=== PATIENT | male | born 1980 | race Caucasian/White ===

== ENCOUNTER 2022-12-24 07:01 | Emergency (ER) | payer OTHER, SELFPAY ==
--- NOTE | 2022-12-24 | ECG_ITS ---
Test Reason : cp Blood Pressure : / mmHG Vent. Rate : 059 BPM Atrial Rate : 059 BPM P-R Int : 152 ms QRS Dur : 106 ms QT Int : 456 ms P-R-T Axes : 049 -06 022 degrees QTc Int : 451 ms Sinus bradycardia Otherwise normal ECG When compared with ECG of 02-JUL-2009 16:13, Heart rate has decreased Referred By: Generic ED Physician Electronically Signed By:NHI EDWARDS
[2022-12-24 07:32] VITALS: BP 112/80; PULSE 58; RESP 16; TEMP 36.8; O2SAT 99; BMI 27.4
[2022-12-24 08:04] LABS: MANUAL DIFF FLAG NO
[2022-12-24 08:09] LABS: Basophils Percent Auto 0.3 % (0-2); Eosinophils Percent Auto 0.1 % (0-4); Hemoglobin 13.4 g/dl (14.0-18.0); Imm Gran Abs Auto 0.02 X10*3/uL (0.00-0.03); Imm Gran Pct Auto 0.3 % (0.0-0.4); Lymphocytes Absolute Auto 1.3 X10*3/uL (1.2-4.9); Lymphocytes Percent Auto 16.9 % (20-40); Mean Corpuscular HGB Conc 35.3 g/dl (31.0-36.0); Mean Corpuscular Hemoglobin 33.1 pg (27.0-33.0); Mean Corpuscular Volume 93.8 fL (80.0-98.0); Mean Platelet Volume 9.7 fL (9.4-12.4); Monocytes Absolute Auto 0.6 X10*3/uL (0.1-1.2); Neutrophils Absolute Auto 5.5 x10*3/uL (2.0-8.3); Neutrophils Percent Auto 74.4 % (45-73); Platelet Count 238 X10*3/uL (160-400); Red Blood Count 4.05 X10*6/uL (4.60-5.80); Red Cell Distribution Width 12.5 % (11.0-16.0); White Blood Count 7.4 X10*3/uL (4.8-10.8)
[2022-12-24 08:29] LABS: Anion Gap 12 (12-20); Blood Urea Nitrogen 12 mg/dL (9-16); Calcium 9.5 mg/dL (8.4-10.2); Carbon Dioxide 25 mmol/L (22-29); Chloride 105 mmol/L (96-108); Estimated Glomerular Filt Rate > 60; Glucose Random 103 mg/dL (60-115); Sodium 138 mmol/L (135-145)
[2022-12-24 08:38] LABS: Troponin-I High Sensitivity < 2.7 ng/L (<3.5-35.0)
[2022-12-24 08:47] VITALS: BP 114/79; PULSE 55; RESP 14; O2SAT 97
--- NOTE | 2022-12-24 09:06 | PC.NURSE ---
labs drawn, awaiting provider at this time, pt resting, respirations even and unlabored
--- NOTE | 2022-12-24 09:12 | ED_ITS ---
HPI - General Adult General Chief complaint: General Medical Stated complaint: High BP Time Seen by Provider: 12/24/22 09:12 Source: patient and other (Significant other, Akanksha) Mode of arrival: ambulatory Limitations: no limitations History of Present Illness HPI narrative: 42-year-old man who presents emergency department for evaluation of chest pain, headache, nausea, vomiting, myalgias and arthralgias. Patient states that he has been sick for approximately 1 week. He states he has a constant tightness in his chest. He points to his sternum and anterior chest when asked to localize the pain. States the pain is worse with movement but not with breathing. He states he does feel short of breath but denies dyspnea on exertion. He denied fever, chills, rhinorrhea, sore throat or cough. He states that he does have an intermittent, headache which is located at the top of his head and is a pressure-like sensation. He has had nausea with no vomiting. He denied photophobia or phonophobia. States that he is feeling fatigued in his muscles and joints ache. The patient's significant other took the patient's blood pressure at home and it was 125/105 which concerned her therefore she brought him to the emergency department for evaluation. The patient does not have a history of hypertension. Related Data Previous Rx's Medication Instructions Recorded acetaminophen 500 mg tablet 1,000 mg PO Q6H PRN fever or pain 12/24/22 (Tylenol Extra Strength) #20 tabs ibuprofen 400 mg tablet 400 mg PO TID PRN fever or pain 12/24/22 #30 tabs ondansetron 4 mg disintegrating 4 mg PO Q6-8H PRN nausea and 12/24/22 tablet vomiting #14 tabs Allergies Allergy/AdvReac Type Severity Reaction Status Date / Time No Known Allergies Allergy Mild NOT Unverified 01/17/20 16:45 [No Known Allergies*] APPLICABLE Review of Systems Review of Systems: Yes all other systems are reviewed and are negative [facility] Past Medical History [facility] Narrative: Past medical history: None. Social history: Denies tobacco use, occasionally drinks alcohol, he denies drug use. Social History Social History Alcohol intake: current Alcohol intake frequency: holidays/special occasions only Smoked in Last 30 Days: No Use of substances other than those prescribed or required for medical reasons: No Advance Directives: No Advance Directives Information Provided: Yes Physical Exam ED Vital Signs: Vital Signs - 24 hr 12/24/22 07:32 12/24/22 08:47 12/24/22 10:00 Temperature 98.3 F Pulse Rate 58 55 56 Respiratory Rate 16 14 10 L Blood Pressure 112/80 114/79 116/81 Pulse Oximetry 99 97 97 Oxygen Delivery Method Room Air Room Air Room Air BMI result Body Mass Index 27.4 Vital signs were normal. Exam: General: Awake, alert in no distress Head: Normocephalic, atraumatic EENT: PERRL, Lids normal, sclera normal, conjunctiva normal, nose normal , ears normal, throat without erythema or exudates Neck: Supple, no adenopathy, trachea midline and nontender Lung: breath sounds symmetric, no wheezing, rales or rhonchi Chest: symmetric movement, patient has tenderness palpation of his sternum as costochondral joints Heart: regular rate and rhythm, normal S1, S2 no murmurs or rubs Abdomen: soft, non-tender, nondistended, normal bowel sounds Back: no vertebral tenderness, no CVAT Extremities: no deformities, moves all extremities symmetrically Skin: no rashes, no lesion, normal color and warmth Neuro: Awake, alert, oriented, normal speech, cranial nerves intact, moves all extremities symmetrically Psych: Pleasant, cooperative Medical Decision Making Medical Decision Making MDM Narrative: 42-year-old male with no significant past medical history presents emergency department for evaluation of 1 week of chest pain, shortness of breath, he adache, myalgias, arthralgias and fatigue. Patient's vital signs were normal. Patient's physical examination did reveal tenderness palpation of his sternum and costochondral joints otherwise was unremarkable. I ordered the following evaluation on the patient: CBC, BMP, troponin, EKG. 12:05: Patient's laboratory evaluation was unremarkable. Twelve EKG was normal. Patient's exam did reveal tenderness palpation over his sternum and costochondral joints. Patient's presentation is consistent with acute viral syndrome I did discuss this with the patient and the patient's significant other Patient was treated with ibuprofen 400 mg orally and Tylenol 975 mg orally. He was given prescriptions for these 2 medications and also Zofran ODT 4 mg every 6 to 8 hours as needed for nausea and vomiting He was given a work note, was given printed and verbal instructions and discharged home Differential Diagnosis Differential Diagnoses: The differential diagnosis associated with the presentation includes Differential diagnosis includes was not limited to viral syndrome, costochondritis, myocardial infarction, myocardial ischemia, pneumonia Admission/Observation Consideration of admission/observation: Escalation of care including admission/observation considered Lab Data MDM Lab Attestation statement: I reviewed the patient's lab results. My independent interpretation patient's laboratory evaluation is as follows: CBC was normal. BMP was normal. Troponin was below detectable limits. 12/24/22 08:00 12/24/22 08:00 Labs: Lab Results 12/24/22 12/24/22 12/24/22 Range/Units 08:00 08:00 08:00 WBC 7.4 (4.8-10.8) X10*3/uL RBC 4.05 L (4.60-5.80) X10*6/uL Hgb 13.4 L (14.0-18.0) g/dl Hct 38.0 L (42.0-52.0) % MCV 93.8 (80.0-98.0) fL MCH 33.1 H (27.0-33.0) pg MCHC 35.3 (31.0-36.0) g/dl RDW 12.5 (11.0-16.0) % Plt Count 238 (160-400) X10*3/uL MPV 9.7 (9.4-12.4) fL Immature Gran % (Auto) 0.3 (0.0-0.4) % Neut % (Auto) 74.4 H (45-73) % Lymph % (Auto) 16.9 L (20-40) % [place] % (Auto) 8.0 (2-11) % Eos % (Auto) 0.1 (0-4) % Baso % (Auto) 0.3 (0-2) % Lymph # (Auto) 1.3 (1.2-4.9) X10*3/uL [place] # (Auto) 0.6 (0.1-1.2) X10*3/uL Eos # (Auto) 0.0 (0.0-0.4) X10*3/uL Baso # (Auto) 0.0 (0.0-0.2) X10*3/uL Abs Immat Gran (auto) 0.02 (0.00-0.03) X10*3/uL Absolute Neuts (auto) 5.5 (2.0-8.3) x10*3/uL Absolute Nucleated RBC 0.000 (0.0-0.012) X10*3/uL Nucleated RBC % (auto) 0.0 (0.0-0.2) /100WBC Sodium 138 (135-145) mmol/L Potassium 4.0 (3.3-5.1) mmol/L Chloride 105 (96-108) mmol/L Carbon Dioxide 25 (22-29) mmol/L Anion Gap 12 (12-20) BUN 12 (9-16) mg/dL Creatinine 0.82 (0.5-1.4) mg/dL Estim Creat Clear Calc 117.0 Estimated GFR > 60 Random Glucose 103 (60-115) mg/dL Calcium 9.5 (8.4-10.2) mg/dL Troponin I High Sens < 2.7 (<3.5-35.0) ng/L Independent Interpretation I performed an independent interpretation of an: EKG Interpretation: My independent interpretation patient's 12 EKG done at 07:39 hours is as follows: Sinus bradycardia with a rate of 59, normal IN interval, QRS duration QTC interval, no ST segment elevation, no ST segment depression, no T-wave abnormalities, compared to EKG dated 07/02/2009-there are no changes. Except for the bradycardia this is a normal EKG. Discharge Plan Discharge Clinical Impression: Viral syndrome Chest pain Qualifiers: Chest pain type: unspecified Qualified Code(s): R07.9 - Chest pain, unspecified Headache Qualifiers: Headache chronicity pattern: acute headache Patient Disposition: Home, Self-Care Instructions: Costochondritis (ED), Viral Syndrome (ED) Additional Instructions: Your EKG was normal. Your blood work was normal. Your blood pressures here in the emergency department were normal. Your symptoms are consistent with a viral infection causing inflammation of the joints and muscles of your chest. This type of chest pain is called costochondritis. Take ibuprofen 400 mg pills, 1 pills every 6 hours (3 times a day) for 5 days then every 6 hours as needed for pain or fever. Take Tylenol (acetaminophen) 500 mg pills, 2 pills every 6 hours as needed for pain or fever. Take Zofran ODT 4 mg pills, 1 pill dissolved in your mouth every 8 hours as needed for nausea and vomiting. Follow-up with your doctor in 2 days. Please return to the emergency department if your symptoms get worse or if you develop any symptoms that are concerning to you. Please see work note Prescriptions: New acetaminophen [Tylenol Extra Strength] 500 mg tablet 1,000 mg PO Q6H PRN (Reason: fever or pain) Qty: 20 0RF ibuprofen 400 mg tablet 400 mg PO TID PRN (Reason: fever or pain) Qty: 30 0RF ondansetron 4 mg tablet,disintegrating 4 mg PO Q6-8H PRN (Reason: nausea and vomiting) Qty: 14 0RF Stand Alone Forms: Work/School Release
[2022-12-24 10:00] VITALS: BP 116/81; PULSE 56; RESP 10; O2SAT 97
[2022-12-24 11:58] VITALS: BP 127/77; PULSE 64; RESP 16; O2SAT 98
[2022-12-24] MEDS: Acetaminophen 325 MG TABLET 975 MG PO (12:08)
[2022-12-24] MEDS: Ibuprofen 400 MG TABLET PO (12:09)
== END 2022-12-24 12:15 | disposition home or self-care (01) ==
PROVIDERS: Emergency Provider Emergency Medicine Emergency Medical Services
DX: B34.9 Viral infection, unspecified (principal); R07.89 Other chest pain; R51.9 Headache, unspecified; Z79.899 Other long term (current) drug therapy
CPT/HCPCS: 36415; 80048; 84484; 85025; 93005; 99283; 99285

== ENCOUNTER 2024-12-26 06:54 | Emergency (ER) | payer SELFPAY ==
--- NOTE | ~2024-12-26 | XR_ITS ---
EXAMINATION: XR CHEST 2 VIEWS HISTORY: cough COMPARISON: There are no prior studies available for comparison. FINDINGS: PA and lateral views of the chest are submitted. The lungs are expanded and clear. There is no pleural effusion, pneumothorax, or pulmonary vascular congestion. The heart is normal in size. The bones are intact. XR/XR chest 2V IMPRESSION: Normal examination of the chest. Electronically signed by: Bogdan Vásquez MD 12/26/2024 08:55 AM EDT
[2024-12-26 07:01] VITALS: BP 118/60; PULSE 62; RESP 18; TEMP 36.7; O2SAT 97; BMI 28.0
--- OUTSIDE RECORDS SUMMARY | 2024-12-26 07:49 | XMS_ITS | Clinical Summary ---
Author Organization [facility] it Address [address] [place] [address] Care Team Providers Care School Principal Name Role Phone Unavailable Primary Care Provider Unavailabl e Social History Tobacco Use Types Packs/Day Years Used Date Smoking Tobacco: Never Assessed Sex and Gender Information Value Date Recorded Sex Assigned at Not on file Legal Sex Male 5:04 AM EST Gender Identity Not on file Sexual Orientation Not on file Plan of Treatment Health Maintenance Due Date Last Done Comments DTaP,Tdap,and Td Vaccines (1 - Tdap) 2001 Hepatitis B Vaccines (1 of 3 - 19+ 3-dose series) 2001 Cholesterol Screening (Lipid Panel) 04/04/2022 HIV Screening 04/04/2022 Hepatitis C Screening 04/04/2022 Social Influencers of Health Screening 04/04/2022 COVID-19 Vaccine (2023-2 5 season) 2024 Depression Screening 05/02/2024 Influenza Vaccine (#1) 2024 HIB Vaccines Aged Out No longer eligi ble based on patient's age to complete this topic HPV Vaccines Aged Out No longer eligi ble based on patient's age to complete this topic Hepatitis A Vaccines Aged Out No long er eligible based on patient's age to complete this topic IPV Vaccines Aged Out No longer eligi ble based on patient's age to complete this topic MMR Vaccines Aged Out No longer eligi ble based on patient's age to complete this topic Meningococcal ACWY Vaccine Aged Out N o longer eligible based on patient's age to complete this topic Meningococcal B Vaccine Aged Out No l onger eligible based on patient's age to complete this topic Pneumococcal Vaccine: Pediat rics (0 to 5 Years) and At-Risk Patients (6 to 49 Years) Aged Out No longer eligible b ased on patient's age to complete this topic RSV Immunization Patients Un juan 20 months Aged Out No longer eligible b ased on patient's age to complete this topic Varicella Vaccines Aged Out No longer eligible based on patient's age to complete this topic
--- OUTSIDE RECORDS SUMMARY | 2024-12-26 07:49 | XMS_ITS | Encounter Summary ---
Author Organization [employer] Address [address] [place] [address] Care Team Providers Care Environmental Health Aide Name Role Phone Unavailable Primary Care Provider Unavailabl e Reason for Visit * Reason Onset Date Comments Letter for School/Work 12/17/2022 Encounter Details Date Type Department Care Team ([facility] st Contact Info) Description 12/17/2022 Telephone [facility] [address] [place], [place] [id number] Sam Lares DDS [address] [place], [place] [phone] Letter for School/Work Social History Tobacco Use Types Packs/Day Years Used Date Smoking Tobacco: Never Smokeless Tobacco: Never Alcohol Use Standard Drinks/Week Comments Defer 0 (1 standard drink = 0.6 oz pur e alcohol) Sex and Gender Information Value Date Recorded Sex Assigned at Male 03/01/2022 10:15 AM EDT Legal Sex Male 10:15 AM EDT Gender Identity Choose not to disclose 10:15 AM EDT Sexual Orientation Choose not to disclose 2021 10:15 AM EDT documented as of this encounter Miscellaneous Notes * Telephone Encounter - Noemí Castro - 12/17/2022 11:09 AM EDT Patient called in again inquiring about note. * Telephone Encounter - Noemí Castro - 12/17/2022 8:53 AM EDT Patient came in yesterday and has extraction done. When they came out of visit they state there wasno one in front and they need a note. He did not go to work today and is requesting the note to cover today's absence as well as yesterdays visit DR documented in this encounter Plan of Treatment Not on file documented as of this encounter Visit Diagnoses Not on filedocumented in this encounter
--- OUTSIDE RECORDS SUMMARY | 2024-12-26 07:49 | XMS_ITS | Clinical Summary ---
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 Social History Tobacco Use Types Packs/Day Years Used Date Smoking Tobacco: Never Smokeless Tobacco: Never Tobacco Cessation:Counseling Given: Not Answered Alcohol Use Standard Drinks/Week Comments Defer 0 (1 standard drink = 0.6 oz pur e alcohol) Sex and Gender Information Value Date Recorded Sex Assigned at Male 03/01/2022 10:15 AM EDT Legal Sex Male 10:15 AM EDT Gender Identity Choose not to disclose 10:15 AM EDT Sexual Orientation Choose not to disclose 2021 10:15 AM EDT Last Filed Vital Signs Vital Sign Reading Time Taken Comments Blood Pressure 128/80 12/16/2022 3:27 PM EDT Pulse - - Temperature - - Respiratory Rate - - Oxygen Saturation - - Inhaled Oxygen Concentration - - Weight - - Height - - Body Mass Index - - Plan of Treatment Health Maintenance Due Date Last Done Comments Depression Screening 1982 HIV Screening 1982 Lipid Panel 1982 SDOH Screening 1982 Disability Screening 1982 Alcohol/Substance Use Screening 1994 Family Planning (PISQ) 1997 HPV Vaccines (1 - 3-dose series) 1997 Hepatitis C Screening 02/28/2000 Hepatitis B Vaccines (2 of 3 - 3-dose series) 07/13/2008 06/15/2008, 01/16/1999 Dental Prophylaxis 08/09/2009 02/07/2009 Dental Oral Exam 08/15/2009 02/13/2009 Dental X-Ray: Full Mouth 02/09/2012 02/07/2009 Dental X-Ray: Bitewings 11/27/2023 11/25/2022, 02/07 Tobacco Screening 12/17/2023 12/16/2022 COVID-19 Vaccine ( - season) 2024 Influenza Vaccine (#1) 2024 02/18/2011 DTaP/Tdap/Td Vaccines (8 - Td or Tdap) 02/25/2031 02/25/2021, 12/11/2010, 01/16/1999, Additional history exists Zoster Vaccines (1 of 2) 02/28/2032 RSV Patients and Patients Aged 60 years or older (1 - 1-dose 75+ series) 2057 IPV Vaccines Completed 10/08/1988, 12/31, 1982, Additional history exists Hepatitis A Vaccines Aged Out 12/01/2007, 09/02/19 06 No longer eligible based on patient's age to complete this topic Pneumococcal Vaccine: Pediatrics (0 to 5 Years) and At-Risk Patients (6 to 49) Years Aged Out 02/23/2016 No longer eligible based on patient's age to complete this topic HIB Vaccines Aged Out No longer eligi ble based on patient's age to complete this topic Meningococcal B Vaccine Aged Out No l onger eligible based on patient's age to complete this topic Meningococcal Vaccine Aged Out No raleigh jayne eligible based on patient's age to complete this topic RSV under 20 months Aged Out No longe r eligible based on patient's age to complete this topic Rotavirus Vaccines Aged Out No longer eligible based on patient's age to complete this topic Procedures Procedure Name Priority Date/Time Associated Diagnosis Comments BITEWING - SINGLE RADIOGRAPHIC IMAGE Routine 11/25/2022 11:30 AM EDT Dental caries Dental abscess COMPREHENSIVE ORAL EVALUATION - NEW OR ESTABLISHED PATIENT Routine 02/13/2009 12:00 AM EDT PROPHYLAXIS - ADULT Routine 02/07/2009 1 2:00 AM EDT INTRAORAL - COMPLETE SERIES OF RADIOGRAPHIC IMAGES Routine 02/07/2009 12:00 AM EDT from Last 3 Months or Most Recently Relevant to Health Maintenance
[2024-12-26 07:57] LABS: COVID-19 Test Negative (Negative); IDNOW Serial# 58CA691E
[2024-12-26 08:04] LABS: IDNOW Serial# 55D5AD1C; Influenza B2 Negative (Negative)
--- NOTE | 2024-12-26 08:12 | ED_ITS ---
HPI - General Adult General Chief complaint: Upper Respiratory Symptoms Stated complaint: Fever Headache Etc Time Seen by Provider: 12/26/24 08:10 Source: patient Mode of arrival: ambulatory Limitations: no limitations History of Present Illness ED Provider: Alexa Santana PA-C HPI narrative: 44 year old male with no significant past medical history presenting to emergency department with complaints of a 3 day history of headache and subjective fever. He reports associated nasal congestion with green/yellow mucous, mild sore throat, and cough. He did not take his temperature at home but experienced fever/chills. Denies dizziness, nausea/vomiting/abdominal pain, chest pain, SOB, difficulty breathing, or any other problems. Denies recent travel, denies sick contacts. Onset (ago): day(s) (3) Related Data Previous Rx's ?Medication ?Instructions ?Recorded acetaminophen 500 mg tablet 1,000 mg (2 x 500 mg) PO Q 6H PRN 12/24/22 (Tylenol Extra Strength) fever or pain #20 tabs ibuprofen 400 mg tablet 400 mg PO TID PRN fever or p ain 12/24/22 #30 tabs ondansetron 4 mg disintegrating 4 mg PO Q6-8H PRN naus ea and 12/24/22 tablet vomiting #14 tabs Allergies Allergy/AdvReac Type Severity Reaction Status Date / Time No Known Allergies (No Known Allergy Mild NOT Verified 12/26/24 07:03 Allergies*) APPLICABLE Review of Systems 2 Constitutional: Constitutional: Reports as per HPI, Reports fever(s) and Reports headache(s) Eyes: Eyes: Denies change in vision ENT: Reports as per HPI, Reports headache(s) and Reports sore throat Cardiovascular: Cardiovascular: Reports as per HPI and Denies chest pain Respiratory: Respiratory: Reports as per HPI and Reports cough Gastrointestinal: Gastrointestinal: Reports as per HPI Genitourinary: Genitourinary: Reports as per HPI Musculoskeletal: Musculoskeletal: Reports as per HPI Neurologic: Reports as per HPI and Reports headache(s) Psychiatric: Psychiatric: Reports as per HPI Endocrine: Endocrine: Reports as per HPI Hematologic/Lymphatic: Hematologic/Lymphatic: Reports as per HPI Allergic/Immunologic: Allergic/Immunologic: Reports as per HPI [facility] Past Medical History Attestation statement: The following information was validated with the patient. Source: old records reviewed and nursing notes reviewed Social History Social History Alcohol intake: current Alcohol intake frequency: holidays/special occasions only Physical Exam ED Vital Signs: Vital Signs - 24 hr 12/26/24 07:01 12/26/24 09:01 12/26/24 10:27 Temperature 98.1 F 98.1 F 98.1 F Pulse Rate 62 73 73 Respiratory Rate 18 17 17 Blood Pressure 118/60 141/96 H 141/96 H Pulse Oximetry 97 99 99 Oxygen Delivery Method Room Air Room Air Room Air BMI result Body Mass Index 28.0 Const General: cooperative, no acute distress, alert and awake Nutritional Appearance: well nourished Orientation/consciousness: patient oriented x3 HENMT Head: Yes normal to inspection and Yes atraumatic Ears: hearing grossly normal bilaterally and external ears normal General nose exam: Normal external nose present, no nasal discharge noted and no epistaxis Face and sinus: Yes normal facial exam, No abrasion and No laceration Mouth: Normal oral and palatal mucosa present, no drooling and no muffled voice Eyes General: appearance normal, both eyes and all related structures Periorbital: periorbital findings normal Eyelids: Yes eyelids normal Conjunctivae: conjunctivae normal Pupils: Equal, round and reactive pupils present EOM: EOMs intact bilaterally Neck Neck: Yes normal visual inspection and Yes full ROM Lymphatic: other (anterior cervical tenderness) Resp Effort & Inspection: normal respiratory effort and able to speak in complete sentences Cardio Rate: regular rate Rhythm: regular rhythm Neuro General: patient oriented x3, moves all extremities and CN's II-XI intact bilaterally Cranial nerves: Yes Equal, round and reactive pupils present Cognition (Neuro): normal cognition Extrem General: Yes normal to inspection, Yes full ROM and Yes capillary refill normal Psych Appearance: grossly normal Mental Status: mental status grossly normal Affect: normal affect Attitude: cooperative Thought process: Normal thought process present Thought content: Normal thought content present Insight: Good insight present (Psych) Medications Administered Discontinued Medications Generic Name Dose Route Start Last Admin Trade Name Freq PRN Reason Stop Dose Admin Ketorolac Tromethamine 15 mg 12/26/24 08:54 12/26/24 09:09 Ketorolac Tromethamine 15 Mg/Ml Vial IM 12/26/24 08:55 15 mg ONCE ONE Administration Medical Decision Making Medical Decision Making MDM Narrative: Patient is a 44 year old assigned male at with no reported medical history presenting to the emergency department today with subjective fevers, headache, nasal congestion, cough, and sore throat x 3 days. Patient's physical exam was as noted in the physical exam portion of this note - patient is non-toxic. Patient's blood work was unremarkable. Patient's chest x-ray showed no acute process. Patient's clinical presentation is most consistent with a viral illness. I explained my physical exam findings as well as all test results to the patient. I answered all questions asked by the patient. I counseled the patient to STOP taking 1000mg of tylenol Q6H and instead alternate with ibuprofen for fever and to be aware that OTC cold products ALSO contain tylenol / acetaminophen. I stressed the importance of the patient taking his medication as directed (either prescribed or as the over the counter packaging recommends). I stressed the importance of the patient following up with his primary care provider. I stressed the importance of the patient returning to the emergency department immediately if his symptoms were to worsen or if he were to develop any dizziness, shortness of breath, difficulty breathing, chest pain, blurry vision, loss of vision, nausea, vomiting, abdominal pain, fever, chills, back pain, or any other complaints. Patient verbalized agreement and understanding with this treatment plan and discharge. Differential Diagnosis Differential Diagnoses: The differential diagnosis associated with the presentation includes Viral illness Barber COVID-19 Influenza Admission/Observation Consideration of admission/observation: Escalation of care including admission/observation considered Patient would have been admitted to the hospital had his work up had any findings where hospital admission was appropriate and his clinical presentation warranted hospital admission. Lab Data [facility] Lab Attestation statement: I reviewed the patient's lab results. My interpretation of these results are in the MDM Rationale portion of this note. 12/26/24 09:20 12/26/24 09:20 Labs: Lab Results 12/26/24 12/26/24 12/26/24 Range/Units 07:10 07:11 09:08 WBC (4.8-10.8) X10*3/uL RBC (4.60-5.80) X10*6/uL Hgb (14.0-18.0) g/dl Hct (42.0-52.0) % MCV (80.0-98.0) fL MCH (27.0-33.0) pg MCHC (31.0-36.0) g/dl RDW (11.0-16.0) % Plt Count (160-400) X10*3/uL MPV (9.4-12.4) fL Immature Gran % (Auto) (0.0-0.4) % Neut % (Auto) (45-73) % Lymph % (Auto) (20-40) % Barber % (Auto) (2-11) % Eos % (Auto) (0-4) % Baso % (Auto) (0-2) % Lymph # (Auto) (1.2-4.9) X10*3/uL Barber # (Auto) (0.1-1.2) X10*3/uL Eos # (Auto) (0.0-0.4) X10*3/uL Baso # (Auto) (0.0-0.2) X10*3/uL Abs Immat Gran (auto) (0.00-0.03) X10*3/uL Absolute Neuts (auto) (2.0-8.3) x10*3/uL Absolute Nucleated RBC (0.0-0.012) X10*3/uL Nucleated RBC % (auto) (0.0-0.2) /100WBC ESR (0-15) MM/HR Sodium (135-145) mmol/L Potassium (3.3-5.1) mmol/L Chloride (96-108) mmol/L Carbon Dioxide (22-29) mmol/L Anion Gap (12-20) BUN (9-16) mg/dL Creatinine (0.5-1.4) mg/dL Estim Creat Clear Calc Estimated GFR Random Glucose (60-115) mg/dL Calcium (8.4-10.2) mg/dL Total Bilirubin (0.0-1.0) mg/dL AST (5-37) U/L ALT (0-40) U/L Alkaline Phosphatase (39-117) U/L C-Reactive Protein (< or = 0.50) mg/dL Total Protein (6.5-8.0) g/dL Albumin (3.5-5.0) g/dL Acetaminophen (<30) mcg/mL COVID-19 (AWILDA) Negative (Negative) COVID-19 Clin Com See Note Monoscreen (Negative) Influenza Type A (MARYBEL) Negative (Negative) Influenza Type B (MARYBEL) Negative (Negative) Influenza A & B Note See Note S. pyogenes GrpA MARYBEL Negative (Negative) 12/26/24 Range/Units 09:20 WBC 8.6 (4.8-10.8) X10*3/uL RBC 4.17 L (4.60-5.80) X10*6/uL Hgb 14.2 (14.0-18.0) g/dl Hct 40.7 L (42.0-52.0) % MCV 97.6 (80.0-98.0) fL MCH 34.1 H (27.0-33.0) pg MCHC 34.9 (31.0-36.0) g/dl RDW 11.9 (11.0-16.0) % Plt Count 226 (160-400) X10*3/uL MPV 10.3 (9.4-12.4) fL Immature Gran % (Auto) 0.3 (0.0-0.4) % Neut % (Auto) 73.0 (45-73) % Lymph % (Auto) 17.2 L (20-40) % Barber % (Auto) 6.5 (2-11) % Eos % (Auto) 2.4 (0-4) % Baso % (Auto) 0.6 (0-2) % Lymph # (Auto) 1.5 (1.2-4.9) X10*3/uL Barber # (Auto) 0.6 (0.1-1.2) X10*3/uL Eos # (Auto) 0.2 (0.0-0.4) X10*3/uL Baso # (Auto) 0.1 (0.0-0.2) X10*3/uL Abs Immat Gran (auto) 0.03 (0.00-0.03) X10*3/uL Absolute Neuts (auto) 6.3 (2.0-8.3) x10*3/uL Absolute Nucleated RBC 0.000 (0.0-0.012) X10*3/uL Nucleated RBC % (auto) 0.0 (0.0-0.2) /100WBC ESR 5 (0-15) MM/HR Sodium 139 (135-145) mmol/L Potassium 4.4 (3.3-5.1) mmol/L Chloride 106 (96-108) mmol/L Carbon Dioxide 28 (22-29) mmol/L Anion Gap 9 L (12-20) BUN 7 L (9-16) mg/dL Creatinine 0.73 (0.5-1.4) mg/dL Estim Creat Clear Calc 129.9 Estimated GFR > 60 Random Glucose 76 (60-115) mg/dL Calcium 9.1 (8.4-10.2) mg/dL Total Bilirubin 0.6 (0.0-1.0) mg/dL AST 28 (5-37) U/L ALT 24 (0-40) U/L Alkaline Phosphatase 83 (39-117) U/L C-Reactive Protein 0.75 H (< or = 0.50) mg/dL Total Protein 6.8 (6.5-8.0) g/dL Albumin 4.3 (3.5-5.0) g/dL Acetaminophen 3 (<30) mcg/mL COVID-19 (AWILDA) (Negative) COVID-19 Clin Com Monoscreen Negative (Negative) Influenza Type A (MARYBEL) (Negative) Influenza Type B (MARYBEL) (Negative) Influenza A & B Note S. pyogenes GrpA MARYBEL (Negative) Independent Interpretation I performed an independent interpretation of an: Plain X-Ray Interpretation: My interpretation is in agreement with the radiologist's impression of this imaging study. L EXAMINATION: XR CHEST 2 VIEWS HISTORY: cough COMPARISON: There are no prior studies available for comparison. FINDINGS: PA and lateral views of the chest are submitted. The lungs are expanded and clear. There is no pleural effusion, pneumothorax, or pulmonary vascular congestion. The heart is normal in size. The bones are intact. XR/XR chest 2V IMPRESSION: Normal examination of the chest. Electronically signed by: Bogdan Vásquez MD 12/26/2024 08:55 AM EDT Dictated By: Bogdan Vásquez MD Signed By: Electronically signed by Bogdan Vásquez MD 12/26/24 0855 Radiology Impression Discussion of test interpretation with radiology: I have reviewed the radiologist's reading. Discharge Plan Discharge Clinical Impression: Upper respiratory infection Patient Disposition: Home, Self-Care Instructions: Upper Respiratory Infection (DC) Additional Instructions: Your chest x-ray, blood work, and COVID-19/Influenza/Barber testing were all unremarkable. This is very reassuring that you have a viral illness that resolve in the coming days. Be sure to stay hydrated and alternate tylenol + ibuprofen for your fever. IF you are prescribed home medications and/or you are taking over the counter medications at home - it is very important you continue to do so as prescribed / directed unless told otherwise. Follow up with a primary care provider. Return to the emergency department immediately if your symptoms worsen or if you develop any numbness, tingling, dizziness, shortness of breath, difficulty breathing, chest pain, blurry vision, loss of vision, nausea, vomiting, abdominal pain, fever, chills, back pain, or any other complaints. L If you do not have a primary care provider - call any of the below numbers to establish and follow up with a primary care provider. [facility] Primary Care ([place]) [phone] [place] [address], [address] [facility] Primary Care ([facility]) [phone] [place] [address], [address] [facility], [address] [facility] Primary Care ([facility]) [phone] [place] [address], [address] [facility], [address] [facility] Primary Care ([place]) [phone] [place] [address] [address] [facility], [address] [facility] Family Medicine [phone] [address] [facility], [address] Please see the information below about our Patient Portal. If you are not yet enrolled in the [facility] Patient Portal, you will receive an enrollment email invitation following your visit to any [facility] setting. You may also self-enroll in the Patient Portal by visiting our website: [email or web address] The following information is required to access the Patient Portal: - Your [facility] Medical Record Number - Your personal home email address (must match what is in your electronic medical record, Registration staff can assist with this) - Name - Date of Capabilities of the Patient Portal: - Message some providers - View upcoming appointments - Access your health summary, medical history, and visit history - View current conditions and allergies - View procedure and lab results - View your medications, including guidelines, side effects, and precautions - Complete pre-appointment questionnaires requested by your provider - Ready summary reports of your office visits and procedures To access the Patient Portal Mobile [employer], follow these directions: - Search [employer] in the Alex Store or [employer] Store - Download the Alex - Search for [facility] - Enter your login/password Prescriptions: No Action acetaminophen [Tylenol Extra Strength] 500 mg tablet 1,000 mg PO Q6H PRN (Reason: fever or pain) Qty: 20 0RF ibuprofen 400 mg tablet 400 mg PO TID PRN (Reason: fever or pain) Qty: 30 0RF ondansetron 4 mg tablet,disintegrating 4 mg PO Q6-8H PRN (Reason: nausea and vomiting) Qty: 14 0RF Stand Alone Forms: Work/School Release Interventions: ED Discharge Assessment Last Done: 12/26/24 10:27 Discharge Date/Time: 12/26/24 10:27 Print Language: Greenlandic
[2024-12-26 09:01] VITALS: BP 141/96; PULSE 73; RESP 17; TEMP 36.7; O2SAT 99
--- NOTE | 2024-12-26 09:23 | PC.NURSE ---
Labs drawn and sent for analysis. Results pending. Medicated for pain with Toradol. Care ongoing by this RN.
[2024-12-26 09:31] LABS: MANUAL DIFF FLAG NO
[2024-12-26 09:35] LABS: Hematocrit 40.7 % (42.0-52.0); Hemoglobin 14.2 g/dl (14.0-18.0); Imm Gran Abs Auto 0.03 X10*3/uL (0.00-0.03); Imm Gran Pct Auto 0.3 % (0.0-0.4); Lymphocytes Absolute Auto 1.5 X10*3/uL (1.2-4.9); Mean Corpuscular HGB Conc 34.9 g/dl (31.0-36.0); Mean Corpuscular Hemoglobin 34.1 pg (27.0-33.0); Mean Corpuscular Volume 97.6 fL (80.0-98.0); NRBC Abs Auto 0.000 X10*3/uL (0.0-0.012); NRBC Pct Auto 0.0 /100WBC (0.0-0.2); Platelet Count 226 X10*3/uL (160-400); Red Blood Count 4.17 X10*6/uL (4.60-5.80); White Blood Count 8.6 X10*3/uL (4.8-10.8)
[2024-12-26 09:49] LABS: Alanine Aminotransferase 24 U/L (0-40); Albumin Level 4.3 g/dL (3.5-5.0); Alkaline Phosphatase 83 U/L (39-117); Anion Gap 9 (12-20); Aspartate Amino Transferase 28 U/L (5-37); Blood Urea Nitrogen 7 mg/dL (9-16); Calcium 9.1 mg/dL (8.4-10.2); Carbon Dioxide 28 mmol/L (22-29); Chloride 106 mmol/L (96-108); Creatinine Clr Calc Pharmacy 129.9; Estimated Glomerular Filt Rate > 60; Potassium 4.4 mmol/L (3.3-5.1); Sodium 139 mmol/L (135-145); Total Protein 6.8 g/dL (6.5-8.0)
[2024-12-26 09:50] LABS: Acetaminophen LAB 3 mcg/mL (<30)
[2024-12-26 09:51] LABS: IDNOW Serial# 58CA691E; Strep A Nucleic Acid Negative (Negative)
[2024-12-26 10:27] VITALS: BP 141/96; PULSE 73; RESP 17; TEMP 36.7; O2SAT 99
== END 2024-12-26 10:27 | disposition home or self-care (01) ==
PROVIDERS: Physician Assistant Medical; Emergency Provider Emergency Medicine
DX: J06.9 Acute upper respiratory infection, unspecified (principal); Z03.818 Encounter for observation for suspected exposure to other biological agents ruled out; R05.9 Cough, unspecified; R51.9 Headache, unspecified
CPT/HCPCS: 36415; 71046; 80053; 80143; 85025; 85652; 86140; 86308; 87502; 87635; 87651; 96372; 99283; 99284; J1885

== ENCOUNTER → 2024-12-26 08:31 | Outpatient (BNV) | payer OTHER, SELFPAY | PROVIDERS: Visit Provider Radiology Diagnostic Radiology | DX: R05.9 Cough, unspecified (principal) | CPT/HCPCS: 71046 ==

== ENCOUNTER 2025-01-26 05:28 | Emergency (ER) | payer SELFPAY ==
--- NOTE | ~2025-01-26 | CT_ITS ---
CLINICAL HISTORY: RLQ, LLQ pain tenderness R O appendicitis, diverti CT abdomen and pelvis with contrast Comparison: CT - CT ABDOMEN PELVIS W IV CON - 01/26/25 07:40 EDT Findings: The lung bases are clear. The gallbladder and solid organs are within normal limits. No renal stones. No bowel obstruction, pneumoperitoneum, or pneumatosis. There is a fairly large stool burden and constipation is not excluded. Pelvic contents unremarkable. Normal appendix. Severe chronic facet arthropathy is seen in the lower lumbar spine. The rest of the GI tract is unremarkable. IMPRESSION: There is a fairly large stool burden suggestive of constipation. This document has been electronically signed by: Heath Mccabe MD on 01/26/2025 09:03:56
[2025-01-26 05:29] VITALS: BP 156/103; PULSE 98; RESP 20; TEMP 36.7; O2SAT 97; BMI 25.8
--- NOTE | 2025-01-26 05:33 | ECG_ITS ---
Test Reason : N/V ABD PAIN Blood Pressure : */* mmHG Vent. Rate : 107 BPM Atrial Rate : 107 BPM P-R Int : 126 ms QRS Dur : 94 ms QT Int : 412 ms P-R-T Axes : 65 -58 59 degrees QTcB Int : 550 ms Sinus tachycardia Left anterior fascicular block Prolonged QT Abnormal ECG When compared with ECG of 24-Dec-2022 07:39, Vent. rate has increased by 48 bpm Left anterior fascicular block is now Present QT has lengthened Referred By: Generic ED Physician Electronically Signed By: Rob Aranda
--- OUTSIDE RECORDS SUMMARY | 2025-01-26 05:40 | XMS_ITS | Clinical Summary ---
Author Organization [employer] Address [address] [place] [address] Care Team Providers Care Cutter First Name Role Phone Unavailable Primary Care Provider [...]
--- OUTSIDE RECORDS SUMMARY | 2025-01-26 05:40 | XMS_ITS | Encounter Summary ---
Author Organization [employer] Address [address] [place] [address] Care Team Providers Care Supply Chain Project Manager Name Role Phone Unavailable Primary Care Provider Unavailabl e Reason for Visit * Reason Onset Date Comments Letter for School/Work 12/17/2022 Encounter Details Date Type Department Care Team ([facility] st Contact Info) Description 12/17/2022 Telephone [facility] [address], [place] [phone] Sam Lares DDS [address], [place] [phone] Letter for School/Work Social History Tobacco Use [...]
--- OUTSIDE RECORDS SUMMARY | 2025-01-26 05:40 | XMS_ITS | Clinical Summary ---
Author Organization [facility] it Address [address] [place] [address] Care Team Providers Care Lead Mechanic Name Role Phone Unavailable Primary Care Provider [...] 04/04/2022 Social Influencers of Health Screening 04/04/2022 Depression Screening 05/02/2024 COVID-19 Vaccine ( - 2023-2 5 season) 2024 Influenza Vaccine (#1) 2024 HIB Vaccines Aged [...]
[2025-01-26 05:51] LABS: MANUAL DIFF FLAG NO
[2025-01-26 05:53] LABS: Hematocrit 44.2 % (42.0-52.0); Hemoglobin 16.0 g/dl (14.0-18.0); Imm Gran Abs Auto 0.03 X10*3/uL (0.00-0.03); Imm Gran Pct Auto 0.3 % (0.0-0.4); Lymphocytes Absolute Auto 1.2 X10*3/uL (1.2-4.9); Mean Corpuscular HGB Conc 36.2 g/dl (31.0-36.0); Mean Corpuscular Hemoglobin 33.8 pg (27.0-33.0); Mean Corpuscular Volume 93.4 fL (80.0-98.0); NRBC Abs Auto 0.000 X10*3/uL (0.0-0.012); NRBC Pct Auto 0.0 /100WBC (0.0-0.2); Platelet Count 365 X10*3/uL (160-400); Red Blood Count 4.73 X10*6/uL (4.60-5.80); White Blood Count 9.6 X10*3/uL (4.8-10.8)
[2025-01-26 05:56] VITALS: PULSE 96; RESP 20; TEMP 38.4
[2025-01-26 06:00] LABS: COVID-19 Test Negative (Negative); IDNOW Serial# 55D5AD1C; IDNOW Serial# 58CA691E; Influenza B2 Negative (Negative)
--- NOTE | 2025-01-26 06:05 | ED_ITS ---
HPI - Nausea/Vomiting/Diarrhea General Chief complaint: Nausea/Vomiting/Diarrhea Stated complaint: Acid reflux, vomiting Time Seen by Provider: 01/26/25 06:05 Source: patient and family () Mode of arrival: ambulatory Limitations: no limitations History of Present Illness ED Provider: Dr. Gene Lovell HPI Narrative: 44-year-old male with no significant past medical history who presents emergency department for evaluation of nausea, vomiting abdominal pain x2 days. He states the pain started suddenly yesterday at around 18:00 hours. The pain has been constant, waxing and waning in intensity and 10/10 at its worst. He states he has had similar pain in the past. He states that in the past this pain has been triggered by eating greasy foods. He points to his upper abdomen when asked to localize the pain. He has subjective fever and chills. He denied cough, chest pain, shortness of breath and dyspnea on exertion. He did have nausea and had 3-4 episodes of vomiting today. He did not notice any blood in the vomit. He denied diarrhea, dark tarry stools or bloody stools. Patient states he does get heartburn frequently and takes Mylanta Related Data Previous Rx's ?Medication ?Instructions ?Recorded acetaminophen 500 mg tablet 1,000 mg (2 x 500 mg) PO Q 6H PRN 12/24/22 (Tylenol Extra Strength) fever or pain #20 tabs ibuprofen 400 mg tablet 400 mg PO TID PRN fever or p ain 12/24/22 #30 tabs ondansetron 4 mg disintegrating 4 mg PO Q6-8H PRN naus ea and 12/24/22 tablet vomiting #14 tabs Allergies Allergy/AdvReac Type Severity Reaction Status Date / Time No Known Allergies (No Known Allergy Mild NOT Verified 01/26/25 05:31 Allergies*) APPLICABLE Review of Systems 2 Review of Systems: Yes all other systems are reviewed and are negative [facility] Past Medical History [facility] Narrative: social history: He does smoke cigarettes. He states that he drinks alcohol once or twice a week. When he drinks he will drink several glasses of beer and sometimes a rum. Social History Social History Alcohol intake: current Alcohol intake frequency: a few times a week Smoked in Last 30 Days: No Use of substances other than those prescribed or required for medical reasons: No Advance Directives: No Advance Directives Information Provided: No Physical Exam 2 Vital Signs: Vital Signs: Last Vital Signs Temp 98.6 F 01/26/25 09:28 Pulse 84 01/26/25 09:28 Resp 16 01/26/25 09:28 BP 156/98 H 01/26/25 09:28 Pulse Ox 96 01/26/25 09:28 O2 Del Method Room Air 01/26/25 09:28 BMI result Body Mass Index 25.8 Vital signs revealed an elevated blood pressure otherwise unremarkable Exam: General: Awake, alert in no distress Head: Normocephalic, atraumatic EENT: PERRL, sclera and conjunctiva are normal, mouth with no erythema or exudates Neck: Supple, no adenopathy Lung: breath sounds symmetric, no wheezing, no rales and no rhonchi Chest: symmetric movement, nontender Heart: regular rate and rhythm, normal S1, S2 no murmurs or rubs Abdomen: soft, moderate diffuse tenderness with increased tenderness in the epigastric and lower abdominal areas, nondistended, normal bowel sounds Back: no vertebral tenderness, no CVAT Extremities: no deformities, moves all extremities symmetrically, no edema Neuro: Awake, alert, oriented, normal speech, cranial nerves 2-12 intact, moves all extremities symmetrically Psych: Pleasant, cooperative Medications Administered Discontinued Medications Generic Name Dose Route Start Last Admin Trade Name Freq PRN Reason Stop Dose Admin Diphenhydramine HCl 50 mg 01/26/25 06:37 01/26/25 06:50 Diphenhydramine Hcl 50 Mg/Ml Vial IVPUSH 01/26/25 06:38 50 mg ONCE STA Administration Sodium Chloride 1,000 mls @ 999 mls/hr 01/26/25 06:37 01/26/25 08:01 Ns IV 01/26/25 07:37 Infused .Q1H1M STA Infusion Iohexol 100 ml 01/26/25 08:26 01/26/25 08:26 Iohexol 350 Mg/Ml 100 Ml Infus..Btl IV 01/26/25 08:27 85 ml ONCE ONE Administration Ketorolac Tromethamine 15 mg 01/26/25 06:39 01/26/25 06:50 Ketorolac Tromethamine 15 Mg/Ml Vial IVPUSH 01/26/25 06:40 15 mg ONCE STA Administration Metoclopramide HCl 10 mg 01/26/25 06:37 01/26/25 06:50 Metoclopramide Hcl 10 Mg/2 Ml Vial IVPUSH 01/26/25 06:38 10 mg ONCE STA Administration Medical Decision Making Medical Decision Making [facility] Narrative: 44-year-old male with no significant past medical history who presents emergency department for evaluation of nausea, vomiting abdominal pain x2 days. He states the pain started suddenly yesterday at around 18:00 hours. The pain has been constant, waxing and waning in intensity and 10/10 at its worst. He states he has had similar pain in the past. He states that in the past this pain has been triggered by eating greasy foods. He points to his upper abdomen when asked to localize the pain. He has subjective fever and chills. He denied cough, chest pain, shortness of breath and dyspnea on exertion. He did have nausea and had 3-4 episodes of vomiting today. He did not notice any blood in the vomit. He denied diarrhea, dark tarry stools or bloody stools. Patient states he does get heartburn frequently and takes Mylanta Differential diagnosis: Includes but is not limited to gastritis, pancreatitis, diverticulitis, appendicitis, viral syndrome, COVID-19, influenza, myocardial infarction, myocardial ischemia, anemia, electrolyte abnormalities Course: My independent interpretation patient's laboratory evaluation is as follows: CBC was normal. Bicarb elevated 34. Glucose elevated 179. first troponin was detectable but not elevated at 4.1. 2 hour repeat troponin was detectable but not elevated at 5.9-ignificant change and patient was likely that has not have myocardial injury is the cause of his pain. Calcium elevated 11.8-0 do not think this is related to his pain. Lipase was normal. COVID-19 lens in his negative. CT scan of the abdomen pelvis with IV contrast did not reveal any significant findings The patient is treated with Toradol 15 mg IV, metoclopramide 10 mg IV Benadryl 50 mg IV normal saline x1 L with significant improvement in his pain. At this time I suspect that his pain is most likely caused by gastritis versus peptic ulcer disease and I did discuss this with the patient and the patient's . The patient was started on Prilosec 20 mg once a day for 1 month and then advised to switch to Pepcid 20 mg daily. He was given printed and verbal instructions and discharged home. Differential Diagnosis Differential Diagnoses: The differential diagnosis associated with the presentation includes (see above) Admission/Observation Consideration of admission/observation: Escalation of care including admission/observation considered ( yes) Lab Data MDM Lab Attestation statement: I reviewed the patient's lab results. 01/26/25 05:45 01/26/25 05:45 Labs: Lab Results 01/26/25 01/26/25 01/26/25 Range/Units 05:40 05:45 08:10 WBC 9.6 (4.8-10.8) X10*3/uL RBC 4.73 (4.60-5.80) X10*6/uL Hgb 16.0 (14.0-18.0) g/dl Hct 44.2 (42.0-52.0) % MCV 93.4 (80.0-98.0) fL MCH 33.8 H (27.0-33.0) pg MCHC 36.2 H (31.0-36.0) g/dl RDW 11.9 (11.0-16.0) % Plt Count 365 D (160-400) X10*3/uL MPV 10.0 (9.4-12.4) fL Immature Gran % (Auto) 0.3 (0.0-0.4) % Neut % (Auto) 79.8 H (45-73) % Lymph % (Auto) 12.3 L (20-40) % Thurston % (Auto) 7.0 (2-11) % Eos % (Auto) 0.2 (0-4) % Baso % (Auto) 0.4 (0-2) % Lymph # (Auto) 1.2 (1.2-4.9) X10*3/uL Thurston # (Auto) 0.7 (0.1-1.2) X10*3/uL Eos # (Auto) 0.0 (0.0-0.4) X10*3/uL Baso # (Auto) 0.0 (0.0-0.2) X10*3/uL Abs Immat Gran (auto) 0.03 (0.00-0.03) X10*3/uL Absolute Neuts (auto) 7.7 (2.0-8.3) x10*3/uL Absolute Nucleated RBC 0.000 (0.0-0.012) X10*3/uL Nucleated RBC % (auto) 0.0 (0.0-0.2) /100WBC Sodium 145 (135-145) mmol/L Potassium 4.0 (3.3-5.1) mmol/L Chloride 99 (96-108) mmol/L Carbon Dioxide 34 H (22-29) mmol/L Anion Gap 16 (12-20) BUN 13 (9-16) mg/dL Creatinine 1.00 (0.5-1.4) mg/dL Estim Creat Clear Calc 86.8 Estimated GFR > 60 Random Glucose 179 H (60-115) mg/dL Calcium 11.8 H D (8.4-10.2) mg/dL Total Bilirubin 0.6 (0.0-1.0) mg/dL AST 29 (5-37) U/L ALT 24 (0-40) U/L Alkaline Phosphatase 100 (39-117) U/L Troponin I High Sens 4.1 D 5.9 (<3.5-35.0) ng/L Total Protein 8.4 H (6.5-8.0) g/dL Albumin 5.3 H (3.5-5.0) g/dL Lipase 9 (8-78) U/L COVID-19 ([facility]IL[facility]) Negative (Negative) COVID-19 Clin Com See Note Influenza Type A ([facility]) Negative (Negative) Influenza Type B ([facility]) Negative (Negative) Influenza A & B Note See Note Independent Interpretation I performed an independent interpretation of an: EKG Interpretation: My independent interpretation patient's 12 EKG done on 01/26/2025 at 05:35 hours is as follows: Sinus tachycardia with a rate of 105, normal LA interval, QRS duration, prolonged QTC of 550 milliseconds, no ST segment elevation, no ST segment depression, inverted T-wave in V1, when compared to EKG dated 12/24/2024 at 07:39 hours, sinus tachycardia is new, prolonged QTC is also new. Radiology Impression Discussion of test interpretation with radiology: I have reviewed the radiologist's reading. Radiologist Impression: CT abdomen and pelvis with contrast Comparison: CT - CT ABDOMEN PELVIS W IV CON - 01/26/25 07:40 EDT Findings: The lung bases are clear. The gallbladder and solid organs are within normal limits. No renal stones. No bowel obstruction, pneumoperitoneum, or pneumatosis. There is a fairly large stool burden and constipation is not excluded. Pelvic contents unremarkable. Normal appendix. Severe chronic facet arthropathy is seen in the lower lumbar spine. The rest of the GI tract is unremarkable. IMPRESSION: There is a fairly large stool burden suggestive of constipation. This document has been electronically signed by: Heath Mccabe MD on 01/26/2025 09:03:56 Independent Historian Clinical information obtained from an independent historian. History obtained from or confirmed by: Spouse Prescription Management I considered prescription management with: Other Discharge Plan Discharge Clinical Impression: Gastritis Abdominal pain Qualifiers: Abdominal location: epigastric Qualified Code(s): R10.13 - Epigastric pain Patient Disposition: Home, Self-Care Instructions: Gastritis (ED) Additional Instructions: Your blood work was unremarkable. Your EKG was normal. Your COVID 19 and influenza tests were negative. The CT scan of your abdomen and pelvis with IV contrast did not reveal any significant findings to explain your lower abdominal pain. At this time I believe that your pain is due to inflammation of your stomach (gastritis) Take Prilosec (omeprazole) 20 mg pills, 1 pill once a day for 1 month. ?This medication shuts off your acid production and lets the inflammation in your stomach and esophagus heal. After 1 month I want you to start taking Pepcid (famotidine) 20 mg pills, 1 pill once a day.. ?This medication reduces the amount of acid that your stomach produces and will help the inflammation in your stomach heal. You can continue to take Mylanta as needed for heartburn symptoms Take Tylenol (acetaminophen) 500 mg pills, 2 pills every 6 hours as needed for pain or fever. Follow-up with your doctor in 2 days. Please return to the emergency department if your symptoms get worse or if you develop any symptoms that are concerning to you. Prescriptions: No Action acetaminophen [Tylenol Extra Strength] 500 mg tablet 1,000 mg PO Q6H PRN (Reason: fever or pain) Qty: 20 0RF ibuprofen 400 mg tablet 400 mg PO TID PRN (Reason: fever or pain) Qty: 30 0RF ondansetron 4 mg tablet,disintegrating 4 mg PO Q6-8H PRN (Reason: nausea and vomiting) Qty: 14 0RF Discharge Date/Time: 01/26/25 09:29 Print Language: Yi
[2025-01-26 06:11] LABS: Alanine Aminotransferase 24 U/L (0-40); Albumin Level 5.3 g/dL (3.5-5.0); Alkaline Phosphatase 100 U/L (39-117); Anion Gap 16 (12-20); Aspartate Amino Transferase 29 U/L (5-37); Blood Urea Nitrogen 13 mg/dL (9-16); Calcium 11.8 mg/dL (8.4-10.2); Carbon Dioxide 34 mmol/L (22-29); Chloride 99 mmol/L (96-108); Creatinine Clr Calc Pharmacy 86.8; Estimated Glomerular Filt Rate > 60; Lipase 9 U/L (8-78); Potassium 4.0 mmol/L (3.3-5.1); Sodium 145 mmol/L (135-145); Total Protein 8.4 g/dL (6.5-8.0)
--- NOTE | 2025-01-26 06:11 | PC.NURSE ---
pt a&ox4, respirations even and unlabored. pt reports sudden onset of lower abdominal pain, nausea and poor po intake x1 day. pt reports he had etoh prior to pain but reports he did not continue to drink. pt hot to touch, rectal temp obtained. 20g placed in right bicep. MD aware of vs
[2025-01-26 06:15] LABS: Troponin-I High Sensitivity 4.1 ng/L (<3.5-35.0)
[2025-01-26 07:30] VITALS: BP 139/88; PULSE 95; RESP 14; TEMP 37.9; O2SAT 98
--- NOTE | 2025-01-26 07:34 | PC.NURSE ---
assumed care of patient at 0700, patient is resting quietly, resp even and unlabored. patient noted to be diaphoretic, remains febrile. patient is in normal sinus. family at bedside.
[2025-01-26] MEDS: iohexoL 350 MG/ML 100 ML INFUS..BTL IV (08:26)
[2025-01-26 08:35] LABS: Troponin-I High Sensitivity 5.9 ng/L (<3.5-35.0)
[2025-01-26 09:28] VITALS: BP 156/98; PULSE 84; RESP 16; TEMP 37; O2SAT 96
== END 2025-01-26 09:29 | disposition home or self-care (01) ==
PROVIDERS: Emergency Provider Emergency Medicine Emergency Medical Services
DX: K29.70 Gastritis, unspecified, without bleeding (principal); R10.13 Epigastric pain; Z72.0 Tobacco use; Z79.899 Other long term (current) drug therapy
CPT/HCPCS: 36415; 74177; 80053; 83690; 84484; 85025; 87502; 87635; 93005; 96361; 96374; 96375; 99285; J1200; J1885; J2765; Q9967

== ENCOUNTER → 2025-01-26 05:33 | Outpatient (BNV) | payer SELFPAY | PROVIDERS: Emergency Provider Emergency Medicine Emergency Medical Services; Visit Provider Internal Medicine Cardiovascular Disease | DX: I44.4 Left anterior fascicular block (principal); R00.0 Tachycardia, unspecified | CPT/HCPCS: 93010 ==

== ENCOUNTER → 2025-01-26 06:38 | Outpatient (BNV) | payer SELFPAY | PROVIDERS: Emergency Provider Emergency Medicine Emergency Medical Services; Visit Provider Radiology Diagnostic Radiology | DX: R10.813 Right lower quadrant abdominal tenderness (principal); R10.814 Left lower quadrant abdominal tenderness | CPT/HCPCS: 74177 ==